=== PATIENT | male | born 1995 | race Caucasian/White ===

== ENCOUNTER 2018-04-29 17:39 | Emergency (ER) | payer BC ==
[~2018-04-29] VITALS: Ht 182.9 cm; Wt 67.1 kg
[2018-04-29] MEDS ORDERED: AZITHROMYCIN 250 MG TABLET PO ONE (19:00)
[2018-04-29] MEDS ORDERED: CEFTRIAXONE 500 MG VIAL IM ONE (19:00)
[2018-04-29] MEDS ORDERED: CEFTRIAXONE 500 MG VIAL ONE ×2 (19:17→19:18)
[2018-04-29] MEDS ORDERED: AZITHROMYCIN 250 MG TABLET ONE (19:17)
[2018-04-29] MEDS ORDERED: LIDOCAINE HCL 1% 20 ML VIAL ONE (19:20)
--- NOTE | 2018-04-29 19:25 | NUR ---
Pt on the phone with [employer] phone # [phone] with
--- NOTE | 2018-04-29 20:57 | NUR ---
Spoke with [place] and on their way.
--- NOTE | 2018-04-29 21:30 | NUR ---
[place] [employer] here to talk to pt. Spoke with Aric Ross#[id number]
--- NOTE | 2018-04-29 22:01 | NUR ---
[place] [employer] left and stated that [employer] is on the way to see the pt.
--- NOTE | 2018-04-29 22:59 | NUR ---
Called [facility] and stated they will send someone here.
--- NOTE | 2018-04-29 23:28 | NUR ---
[employer] here at pt bedside.
--- NOTE | 2018-04-30 00:45 | NUR ---
[employer] [employer] at bedside.
--- NOTE | 2018-04-30 01:52 | NUR ---
Patient discharged to home in stable conditon. Written and verbal after care instructions given. Patient verbalizes understanding of instructions. Pt ambulated out of ER in steady gait accompanied by 2 religious assistant who will take him to [facility]. Bharathi Ross#[id number]
[2018-04-30 01:54] VITALS: BP 122/69
[2018-05-02 08:06] LABS: *GC NAA Negative (Negative); *TRIC.VAG. NAA Negative (Negative)
== END 2018-04-30 01:54 | disposition home or self-care (01) ==
LOC: ER 17:44
DX: T74.21XA Adult sexual abuse, confirmed, initial encounter (principal); K62.89 Other specified diseases of anus and rectum; R10.9 Unspecified abdominal pain; F15.10 Other stimulant abuse, uncomplicated
CPT/HCPCS: 87491; A4663; J0696; J3490; Q0144